=== PATIENT | male | born 1970 | race African-American/Black ===

== ENCOUNTER 2021-09-13 05:48 | Emergency (ER) | payer MEDICAID ==
[~2021-09-13] VITALS: Ht 170.2 cm; Wt 90.0 kg
[2021-09-13] MEDS ORDERED: LIDOCAINE HCL 1% 20ML VIAL (Pyxis) INJ INFIL ONE (09:00)
[2021-09-13] MEDS ORDERED: IBUPROFEN 600MG TABLET PO ONE (09:00)
[2021-09-13 10:19] VITALS: BP 136/85
== END 2021-09-13 10:20 | disposition home or self-care (01) ==
LOC: ER 05:48
DX: S63.255A Unspecified dislocation of left ring finger, initial encounter (principal); X50.0XXA Overexertion from strenuous movement or load, initial encounter; Y93.89 Activity, other specified; Y92.89 Other specified places as the place of occurrence of the external cause; Y99.8 Other external cause status; J45.909 Unspecified asthma, uncomplicated
CPT/HCPCS: 73140; 99283; J3490; Z7610